=== PATIENT | male | born 1965 | race African-American/Black ===

== ENCOUNTER 2019-11-01 20:55 | Observation (INO) | payer BC ==
[2019-11-01] MEDS ORDERED: Insulin Regular 300 UNITS/3 ML VIAL ONE (21:51)
[2019-11-02] MEDS ORDERED: Sodium Chloride 0.9% 1,000 ML IV SCH (00:15)
[2019-11-02 00:35] VITALS: BMI 37.5
[2019-11-02] MEDS ORDERED: Dextrose 5% in Water 1,000 ML IV PRN (02:01)
[2019-11-02] MEDS ORDERED: Ondansetron PF 4 MG/2 ML Vial IVP PRN (02:01)
[2019-11-02] MEDS ORDERED: Dextrose 50% Abboject 50 ML SYRINGE SLOW IVP PRN (02:01)
[2019-11-02] MEDS ORDERED: Acetaminophen 650 MG Suppository PR PRN (02:01)
[2019-11-02] MEDS ORDERED: Senokot S 8.6-50 MG TAB PO PRN (02:01)
[2019-11-02] MEDS ORDERED: HumaLOG 300 UNITS/3 ML VIAL SC PRN (02:01)
[2019-11-02] MEDS ORDERED: Metoprolol Tartrate 50 MG TAB PO SCH (02:01)
[2019-11-02] MEDS ORDERED: Guaifenesin DM 100-10/5 ML UDCUP PO PRN (02:01)
[2019-11-02] MEDS ORDERED: Ondansetron ODT 4 MG TAB PO PRN (02:01)
[2019-11-02] MEDS ORDERED: Acetaminophen 325 MG TAB PO PRN (02:01)
[2019-11-02] MEDS ORDERED: hydrALAZINE 20 MG/ML VIAL SLOW IVP PRN (02:10)
[2019-11-02] MEDS ORDERED: Labetalol HCl 100 MG/20 ML VIAL SLOW IVP PRN (02:10)
[2019-11-02] MEDS: Sodium Chloride 0.9% 1,000 ML IV SCH ×3 (02:22→17:49)
--- NOTE | 2019-11-02 02:51 | HP ---
PRIMARY CARE PHYSICIAN: Jose Arce MD CHIEF COMPLAINT: Polyuria and polydipsia. HISTORY OF PRESENT ILLNESS: This is a 54-year-old male with a past medical history of hypertension. No family history of diabetes and he has had normal blood work done a year ago. The patient reports that he has been, for the last 2 to 3 weeks, very thirsty. He has been peeing frequently a large amount and he has lost about 10 to 20 pounds in that time period. He eventually went into the [facility] [place] [facility]. There, he was found to have a blood sugar of 789, was also noted to have an elevated creatinine of 1.9 [place] [address] with 14% bands. The rest of the differential was normal. The patient had 2 L of normal saline given in [place] along with cefepime and vanc due to the elevated white blood cell count with bandemia and he was transferred to our emergency room. Here, the patient received 10 units of regular insulin along with another liter of normal saline and his most recent blood sugar was down to 429. He is otherwise without complaints currently. No fever or infectious signs. REVIEW OF SYSTEMS: CONSTITUTIONAL: No fevers. No chills. He has had 20 pounds of weight loss as per HPI. EYES: The patient reports some blurred vision over the last couple of weeks. No double vision. ENT: No congestion, drainage, or sore throat. CARDIOVASCULAR: No chest pain. No palpitations or racing heart. PULMONARY: No coughing, wheezing, or shortness of breath. GASTROINTESTINAL: No abdominal pain. No nausea or vomiting. No diarrhea or constipation. GENITOURINARY: See HPI. No dysuria or hematuria. MUSCULOSKELETAL: He had a little bit of some calf cramps, but otherwise no musculoskeletal complaints. SKIN: No rashes or lesions noted. NEUROLOGIC: No numbness, tingling, or focal weakness. PAST MEDICAL HISTORY: Hypertension. PAST SURGICAL HISTORY: 1. Eye surgery. 2. Cholecystectomy. SOCIAL HISTORY: The patient will occasionally smoke a cigarette and chew tobacco, but nothing regular. No alcohol or illicit drug use. He is and lives at home with his family. 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 He is a full code. His would be his medical decision maker if he is incapacitated; her name is Shaji Sow. FAMILY HISTORY: Parents with hypertension. Nobody in the family has diabetes. ALLERGIES: NO KNOWN DRUG ALLERGIES. CURRENT MEDICATIONS: 1. Anastrozole 0.5 mg every 7 days. 2. Irbesartan/hydrochlorothiazide 150/12.5 mg one tablet daily. 3. Metoprolol 50 mg twice a day. 4. Nifedipine extended release 30 mg daily. 5. Testosterone cypionate 0.75 mL intramuscular q.7 days. PHYSICAL EXAMINATION: VITAL SIGNS: Blood pressure 180/78, pulse 82, respirations 18, temperature 98.1, and O2 saturations 93% on room air. GENERAL: This is a well-developed, obese male, in no acute distress. HEENT: Pupils are equal, round, and reactive to light. Oropharynx clear without lesions, erythema, or exudate. NECK: Supple. No lymphadenopathy. No thyroid nodules or enlargement. No JVD. HEART: Regular rate and rhythm. No murmurs, rubs, or gallops. LUNGS: Clear to auscultation bilaterally. No wheezes, crackles, or rhonchi. ABDOMEN: Soft, nontender to palpation. Normoactive bowel sounds. No hepatosplenomegaly or other masses. EXTREMITIES: No clubbing, cyanosis, or edema. SKIN: No rashes or other lesions. NEUROLOGIC: The patient moves all extremities equally. No facial droop. IMAGING: Chest x-ray, the patient has some mild elevation of the right hemidiaphragm, which is chronic for him. No acute cardiopulmonary process. I did review the films done in the emergency room along with the radiologist's report. LABORATORY DATA: White blood cell count 14078 with 14% bands and the rest of the differential is normal. Hemoglobin 12, hematocrit 37, platelet count 423. Complete metabolic panel is notable for a sodium of 130, chloride of 92, anion gap of 21, BUN of 27, creatinine of 1.90, glucose of 789, initially down to 429 after treatment. Total bilirubin of 1.4, which is actually present on and off for him in the previous lab work, alkaline phosphatase 124. The rest of his complete metabolic panel is normal. Creatine kinase is a little elevated at 510. Troponin is negative x1. Lactic acid was normal. Urinalysis shows also glucose. He did have some beta-hydroxybutyrate on his toxicology screen. ASSESSMENT: 1. New onset diabetes mellitus, type 2 with some ketosis, but no evidence of ketoacidosis. Only symptoms are polyuria, polydipsia and weight loss. At this point, we will continue IV fluids. The patient already received some insulin. We will start him on oral hypoglycemics and diabetic diet and watch him in the hospital overnight. We will recheck lab work this morning and then tomorrow morning as well. I will monitor his blood sugars q.a.c. and at bedtime with a moderate sliding scale. I am starting on metformin 500 mg twice a day and glipizide 5 mg daily and we will monitor to see if this is enough to get his blood sugar under better control. We will check a hemoglobin A1c. 2. Leukocytosis with a left shift. The patient has no infectious signs at all. At this point, I think it is likely a stress response. He did receive some antibiotics in the outside hospital along with cultures. We will monitor the results of his cultures. I will hold off any further antibiotics right now as I do not know what I would be treating. Should he develop any infectious symptoms, then we can reassess the need for antibiotics. 3. Hypertension. We will give patient a dose of metoprolol as he did not get his yesterday evening dose and we will resume his home blood pressure medications. We will also give p.r.n. hydralazine and labetalol IV. 4. Gastrointestinal prophylaxis. We will put patient on Pepcid twice a day. 5. Deep venous thrombosis prophylaxis. Put the patient on Lovenox while in the hospital. CODE STATUS: The patient is a full code. Should he be incapacitated, his medical decision maker would be his , Shaji Sow. Job ID: [id number]
[2019-11-02] MEDS: HumaLOG 300 UNITS/3 ML VIAL SC PRN ×3 (06:04→17:44)
[2019-11-02 06:37] LABS: Hemoglobin A1c 9.2 % (4.0-6.0)
[2019-11-02 06:56] LABS: Anion Gap 12 mmol/L (10-20); BUN (Urea Nitrogen) 17 mg/dL (8.4-25.7); Calc. Creatinine Clearance 125 mL/min (70-130); Carbon Dioxide 25 mmol/L (22-29); Chloride 104 mmol/L (98-107); Estimated GFR-MDRD 76; Glucose 422 mg/dL (70-105); Potassium 4.3 mmol/L (3.5-5.1); Sodium 137 mmol/L (136-145)
[2019-11-02 07:33] LABS: Red Blood Cell (RBC) Count 4.28 mill/uL (4.70-6.10); White Blood Cell (WBC) Count 20.8 thou/uL (4.8-10.8)
[2019-11-02 07:34] LABS: Anisocytosis MODERATE=16-30 cells (100X) (0-5/hpf); Hemoglobin 11.3 g/dL (14.0-18.0); Lymphocytes 21 % (21-51); MDiff Complete? YES; Mean Corpuscular HGB CONC 36.1 g/dL (32.0-36.0); Mean Corpuscular Hemoglobin 26.5 pg (27.0-31.0); Mean Corpuscular Volume 73.4 fL (78.0-98.0); Microcytosis SLIGHT = 6-15 cells (100X) (0-5/hpf); Monocytes 6 % (0-10); Neutrophil 73 % (42-75); Platelet Count 333 thou/uL (130-400); Platelet Morphology Comment Appears Adequate; Poikilocytosis SLIGHT = 6-15 cells (100X) (0-5/hpf); Polychromasia MARKED = >4 cells (100X) (0-2/hpf); RBC Distribution Width 20.4 % (11.5-14.5); Reflex for Review?? YES; Spherocytes MODERATE= 6-15 cells (100X) (None Seen); Target Cells MODERATE= 6-15 cells (100X) (0-1/hpf)
[2019-11-02 08:54] LABS: Sickle Cells SLIGHT = 1-5 cells (100X) (None Seen)
[2019-11-02] MEDS ORDERED: TESTOSTERONE CYPIONATE IM SCH (09:00)
[2019-11-02] MEDS ORDERED: Anastrozole 1 MG TAB PO SCH (09:00)
[2019-11-02] MEDS: NIFEdipine XL 30 MG TAB PO SCH (09:20)
[2019-11-02] MEDS: Hydrochlorothiazide 25 MG TAB PO SCH (09:20)
[2019-11-02] MEDS: glipiZIDE 5 MG TAB PO SCH (09:21)
[2019-11-02] MEDS: Losartan 25 MG TAB PO SCH (09:21)
[2019-11-02] MEDS: metFORMIN 500 MG TAB PO SCH ×2 (09:21→16:18)
[2019-11-02] MEDS: Famotidine 20 MG TAB PO SCH ×2 (09:21→20:08)
[2019-11-02] MEDS: Metoprolol Tartrate 50 MG TAB PO SCH ×2 (09:22→20:08)
[2019-11-02] MEDS: Enoxaparin Sodium 40 MG/0.4 ML SYRINGE SC SCH (09:22)
--- NOTE | 2019-11-02 10:39 | RAD ---
Exam: Chest one view HISTORY:Leukocytosis Comparison: 11/01/2019 FINDINGS: Cardiac silhouette:Upper normal cardiac silhouette Aorta: Unremarkable Pulmonary vessels: Normal Costophrenic angles: Clear LUNGS: No masses or consolidation. Persistent elevation of the right hemidiaphragm Pneumothorax: None Osseous abnormalities: None IMPRESSION: No acute cardiopulmonary process.
[2019-11-02 11:21] LABS: Iron 76 ug/dL (65-175); Iron Binding Capacity, Total 241 mcg/dL (261-462)
[2019-11-02 12:49] LABS: Bacteria/HPF None Seen HPF (None Seen); Bilirubin Negative (Negative); Blood, Urine Negative (Negative); Clarity Clear (Clear); Glucose, Urine (Dipstick) Greater than 1000 mg/dL (Negative); Leukocyte Negative Leu/uL (Negative); Nitrite Negative (Negative); Protein, Urine (Dipstick) Negative (Neg-Trace); RBC/HPF 0-3 HPF (0-3); Squamous Epithelial None Seen HPF (0-3); Urobilinogen Normal mg/dL (Less than 2); WBC/HPF 0-3 HPF (0-3)
[2019-11-02 13:26] LABS: Urine Culture Reflex No No
[2019-11-03] MEDS: Sodium Chloride 0.9% 1,000 ML IV SCH ×2 (03:05→09:31)
[2019-11-03] MEDS: HumaLOG 300 UNITS/3 ML VIAL SC PRN ×2 (05:32→12:01)
[2019-11-03 08:04] VITALS: TEMP 98.2
[2019-11-03] MEDS ORDERED: Insulin Glargine 12 UNITS in Pre-Filled Syringe 1 EACH SC SCH (09:00)
[2019-11-03 09:15] LABS: Mean Corpuscular HGB CONC 33.9 g/dL (32.0-36.0); Mean Corpuscular Hemoglobin 25.3 pg (27.0-31.0); Mean Corpuscular Volume 74.6 fL (78.0-98.0); Mean Platelet Volume 10.1 fL (7.4-10.4); Platelet Count 365 thou/uL (130-400); RBC Distribution Width 20.8 % (11.5-14.5); Red Blood Cell (RBC) Count 4.74 mill/uL (4.70-6.10); White Blood Cell (WBC) Count 17.6 thou/uL (4.8-10.8)
[2019-11-03] MEDS: metFORMIN 500 MG TAB PO SCH (09:20)
[2019-11-03] MEDS: Metoprolol Tartrate 50 MG TAB PO SCH (09:20)
[2019-11-03] MEDS: NIFEdipine XL 30 MG TAB PO SCH (09:20)
[2019-11-03] MEDS: glipiZIDE 5 MG TAB PO SCH (09:20)
[2019-11-03] MEDS: Losartan 25 MG TAB PO SCH (09:21)
[2019-11-03] MEDS: Enoxaparin Sodium 40 MG/0.4 ML SYRINGE SC SCH (09:21)
[2019-11-03] MEDS: Hydrochlorothiazide 25 MG TAB PO SCH (09:21)
[2019-11-03] MEDS: Famotidine 20 MG TAB PO SCH (09:21)
[2019-11-03 16:09] VITALS: BP 169/87
--- NOTE | 2019-11-04 12:10 | DIS ---
DATE OF ADMISSION: 11/01/2019 DATE OF DISCHARGE: 11/03/2019 DISCHARGE DIAGNOSES: 1. New onset diabetes 2. Leukocytosis 3. Anemia. CONSULTATIONS: None. PROCEDURES: None. BRIEF HISTORY OF PRESENT ILLNESS: This is a 54-year-old male with past medical history of hypertension, who had presented to the emergency room due to polyphagia, polyuria, and blurry vision. The patient stated that he looked up his symptoms on the internet and thought he may be diabetic so presented to an outside hospital where his blood sugar was > 700. He went to an outside hospital and was found to have a blood sugar over 700. He was sent here due to elevated white count of 23,000 with 14% bands, and was given empiric antibiotics and was transferred here. HOSPITAL COURSE: New diagnosis of type 2 diabetes: The patient was started on metformin and glipizide. He continued to have blood sugars in the 400s. He was started on Lantus 12 units. He did require 20 units of sliding scale coverage in addition to this on the day of discharge, so his Lantus was increased to 17 units at bedtime. He was given prescription for Lantus and was advised to check his blood sugars before meals and before bedtime. He should follow up with his PCP as soon as possible for further titration. His hemoglobin A1c was 9.2. Leukocytosis: The patient was monitored off antibiotics and his white count improved to 17.6. He remained afebrile. He had a chest x-ray done which was normal. He had a urine sample done, which showed no evidence of UTI. He was discharged and advised to have a CBC repeated to make sure his leukocytosis is resolved. Anemia: The patient did have a hemoglobin of 11 on admission which improved to 12. MCV was 74. His iron panel was consistent with anemia of chronic disease with a ferritin of 2460. He was advised to have this worked up further as an outpatient. DISCHARGE PHYSICAL EXAMINATION: VITAL SIGNS: Temperature 98.2, heart rate 60, blood pressure 150/78, respiratory rate 18, O2 saturation 96% on room air. GENERAL: The patient is morbidly obese. CVS: Regular rate and rhythm with no murmurs, rubs, or gallops. LUNGS: Clear to auscultation bilaterally. ABDOMEN: Positive bowel sounds, soft, nontender, nondistended. EXTREMITIES: No edema. PERTINENT LABORATORY DATA: CBC, 11/02: White blood cell count is 17.6, hemoglobin 12.0, hematocrit 35.4, MCV 74.6, platelet count of 365. BMP, 11/01: Unremarkable except for glucose of 422. Iron panel: Iron 76, TIBC 241, percent sat 32, ferritin 2460. Hemoglobin A1c: 9.2. Fingersticks, 11/02: 377, 351, 224. PERTINENT IMAGING: Chest x-ray, 11/01: Shows no acute disease. DISCHARGE CONDITION: Stable. ACTIVITY: As tolerated. DIET: Diabetic diet. DISCHARGE INSTRUCTIONS: The patient to follow up with his PCP in a week and have a repeat CBC done to re-evaluate resolution of leukocytosis and he should also have followup of his blood sugars to see if his Lantus dose is adequate. Job ID: [id number] [facility]
== END 2019-11-03 17:29 | disposition home or self-care (01) ==
LOC: ERS 20:55 → T4-A 22:56
PROVIDERS: ADMIT Emergency Medicine; ATTEND Emergency Medicine
DX: E11.9 Type 2 diabetes mellitus without complications (principal); D72.829 Elevated white blood cell count, unspecified; D64.9 Anemia, unspecified; I10 Essential (primary) hypertension; F17.210 Nicotine dependence, cigarettes, uncomplicated; F17.220 Nicotine dependence, chewing tobacco, uncomplicated; E66.01 Morbid (severe) obesity due to excess calories; Z68.37 Body mass index [BMI] 37.0-37.9, adult; Z79.811 Long term (current) use of aromatase inhibitors; Z79.899 Other long term (current) drug therapy
CPT/HCPCS: 36415; 36416; 71045; 80048; 81001; 82728; 83036; 83540; 83550; 85025; 85027; 96361; 96372; 96374; G0378; J1650; J1815

== ENCOUNTER 2025-05-22 13:53 | Emergency (ER) | payer OTHER ==
[2025-05-22 16:57] LABS: #Basophils 0.13 10x3/uL (0.0-0.2); #Eosinophils 0.69 10x3/uL (0.0-0.7); #Monocytes 1.04 10x3/uL (0.11-0.59); #Neutrophils 9.56 10x3/uL (1.40-6.50); %Basophils 0.9 % (0.0-1.0); %Eosinophils 4.9 % (0.0-10.0); %Lymphocytes 17.9 % (21.0-51.0); %Monocytes 7.4 % (0.0-10.0); %Neutrophils 68.2 % (42.0-75.0); Hematocrit 27.3 % (42.0-52.0); Hemoglobin 9.7 g/dL (14.0-18.0); Mean Corpuscular Hemoglobin 24.4 pg (27.0-31.0); Mean Corpuscular Volume 68.6 fL (78.0-98.0); Platelet Count 600 10x3/uL (130-400); Red Blood Cell (RBC) Count 3.98 mill/uL (4.70-6.10); White Blood Cell (WBC) Count 14.04 10x3/uL (4.8-10.8)
[2025-05-22 17:20] LABS: ALT (SGPT) 11 U/L (Less than 45); AST (SGOT) 29 U/L (11-34); Albumin 3.6 g/dL (3.1-4.5); Alkaline Phosphatase 78 U/L (40-110); Anion Gap 12 mmol/L (10-20); BUN (Urea Nitrogen) 21 mg/dL (8.4-25.7); Bilirubin, Total 0.7 mg/dL (0.3-1.2); Calc. Creatinine Clearance 0 mL/min (70-130); Calcium 9.3 mg/dL (7.8-10.44); Carbon Dioxide 27 mmol/L (22-29); Chloride 106 mmol/L (98-107); Globulin 3.5 g/dL (2.4-3.5); Glucose 89 mg/dL (70-105); Potassium 3.7 mmol/L (3.5-5.1); Sodium 141 mmol/L (136-145)
[2025-05-22 17:22] LABS: Anisocytosis MODERATE=16-30 cells HPF (0-5); Macrocytosis SLIGHT = 6-15 cells HPF (0-5); Microcytosis MODERATE=15-30 cells HPF (0-5); Platelet Adequacy Comment Platelets Increased; Poikilocytosis SLIGHT = 6-15 cells HPF (0-5); Polychromasia SLIGHT = 2-3 cells HPF (0-2); Sickle Cells SLIGHT = 1-5 cells HPF (None Seen); Target Cells MODERATE= 6-15 cells HPF (0-1)
== END 2025-05-22 18:20 | disposition home or self-care (01) ==
LOC: ERS 13:53
DX: M87.9 Osteonecrosis, unspecified (principal); D57.1 Sickle-cell disease without crisis; M54.41 Lumbago with sciatica, right side; I10 Essential (primary) hypertension; J44.9 Chronic obstructive pulmonary disease, unspecified; Z86.711 Personal history of pulmonary embolism; Z79.01 Long term (current) use of anticoagulants; D72.829 Elevated white blood cell count, unspecified
CPT/HCPCS: 80053; 85025; 85046